=== PATIENT | female | born 1990 | race Caucasian/White ===

== ENCOUNTER 2017-05-18 14:22 | Emergency (ER) | payer MEDICAID, OTHER | END 2017-05-18 16:08 | disposition home or self-care (01) | LOC: FTE 14:22 | DX: M25.511 Pain in right shoulder (principal); M54.9 Dorsalgia, unspecified | CPT/HCPCS: 99283; Z7502 ==

== ENCOUNTER 2017-08-10 20:29 | Emergency (ER) | payer MEDICAID ==
[2017-08-10] MEDS: DEXAMETHASONE 4 MG TAB PO (22:20)
== END 2017-08-10 22:32 | disposition home or self-care (01) ==
LOC: FTE 20:29
DX: J02.9 Acute pharyngitis, unspecified (principal)
CPT/HCPCS: 99283; Z7610

== ENCOUNTER 2017-10-12 08:48 | Emergency (ER) | payer OTHER, MEDICAID | END 2017-10-12 09:19 | disposition home or self-care (01) | LOC: FTE 08:48 | DX: J03.90 Acute tonsillitis, unspecified (principal) | CPT/HCPCS: 99283; Z7502 ==

== ENCOUNTER 2017-12-04 08:29 | Emergency (ER) | payer OTHER ==
[2017-12-04] MEDS: IBUPROFEN 600 MG TAB PO (09:28)
[2017-12-04 09:30] LABS: URINE BLOOD (Dip) POC Negative (NEGATIVE); URINE GLUCOSE (Dip) POC Negative (NEGATIVE); URINE KETONES (Dip) POC 4+ (NEGATIVE); URINE LEUKOCYTE EST (Dip) POC Trace (NEGATIVE); URINE NITRITE (Dip) POC Negative (NEGATIVE); URINE TOTAL PROTEIN POC Trace (NEGATIVE)
[2017-12-04 09:30] LABS: URINE PH (Dip) POC 8.5 (5.0-8.5)
== END 2017-12-04 10:18 | disposition home or self-care (01) ==
LOC: FTE 08:29
DX: B02.9 Zoster without complications (principal); R40.2412 Glasgow coma scale score 13-15, at arrival to emergency department
CPT/HCPCS: 81003; 81025; 99283